=== PATIENT | female | born 1990 | race Caucasian/White ===

== ENCOUNTER 2016-07-10 08:44 | Inpatient (IN) | payer OTHER ==
[~2016-07-10] VITALS: Ht 165.1 cm; Wt 92.7 kg
[2016-09-03] VITALS (31 sets, daily range): BP systolic 97–130; BP diastolic 49–80; PULSE 65–94; TEMP 97.8–98.4
[2016-09-03] MEDS ORDERED: PRENATAL (07:20)
[2016-09-03 07:41] LABS: BASO % 0.2 % (0.0-2.0); EOS # 0.1 (0.0-0.7); EOS % 0.6 % (0-4.0); GRAN % 71.9 % (42.2-75.2); LYMPH # 1.5 (1.2-3.4); LYMPH % 18.3 % (20.0-51.0); MEAN CELL VOLUME 81 fl (80.0-100.0); MEAN CORPUSCULAR HGB CONC 32 g/dl (33.0-37.0); MEAN PLATELET VOLUME 10.8 fl (7.4-10.4); MONO # 0.7 (0.1-0.6); MONO % 8.5 % (1.7-9.3); PLATELET COUNT 186 K/mm3 (130-400); RED BLOOD COUNT 4.03 M/mm3 (4.10-5.30); WHITE BLOOD COUNT 8.4 K/mm3 (4.8-10.8)
[2016-09-03 07:44] LABS: HEMATOCRIT 32.8 % (37.0-47.0); HEMOGLOBIN 10.5 g/dl (12.5-16.0); MEAN CORPUSCULAR HEMOGLOBIN 26 pg (27.0-31.0)
[2016-09-03] MEDS ORDERED: PERCOCET 325 MG1 TA2 PO (08:04)
[2016-09-03] MEDS ORDERED: MOTRIN 800800 MG/TAB PO (08:04)
[2016-09-04 00:05] VITALS: BP 103/61; PULSE 95; TEMP 98.4
[2016-09-04 04:55] VITALS: BP 94/52; PULSE 73; TEMP 98.5
[2016-09-04 07:00] VITALS: BP 98/58; PULSE 70; TEMP 98.1
== END 2016-09-04 14:56 | disposition home or self-care (01) | DRG 775 ==
LOC: EDSTATUS 08:44 → LDRO 09:41 → LDR 09-03 06:41 → OB 09-03 15:30
PROVIDERS: Obstetrics & Gynecology
PROC: 10E0XZZ Delivery of Products of Conception, External Approach (ICD-10-PCS; principal; 2016-09-03)
PROC: 0HQ9XZZ Repair Perineum Skin, External Approach (ICD-10-PCS; 2016-09-03)
PROC: 3E033VJ Introduction of Other Hormone into Peripheral Vein, Percutaneous Approach (ICD-10-PCS; 2016-09-03)
DX: O70.0 First degree perineal laceration during delivery (principal); Z3A.39 39 weeks gestation of pregnancy; Z37.0 Single live birth
CPT/HCPCS: J2590; J7120

== ENCOUNTER → 2017-08-05 | Outpatient (CLI) | payer OTHER ==
[~2017-08-05] MED LIST: MOTRIN 800800 MG/TAB PO; PERCOCET 325 MG1 TA2 PO; PRENATAL
== END ==
LOC: COL.RAD 08:43
DX: M21.761 Unequal limb length (acquired), right tibia (principal)